=== PATIENT | female | born 1970 | race Caucasian/White ===

== ENCOUNTER 2020-02-05 07:38 | Day surgery (SDC) | payer OTHER | END 2020-02-05 22:45 | disposition home or self-care (01) | LOC: MOI US 07:38 | DX: C50.911 Malignant neoplasm of unspecified site of right female breast (principal) | CPT/HCPCS: 19285; 38505; 77065 ==

== ENCOUNTER 2020-03-01 07:15 | Day surgery (SDC) | payer OTHER ==
[~2020-03-01] VITALS: Ht 171 cm; Wt 71.0 kg
[~2020-03-01 07:15] MED LIST: ACYC800 PO; BUPROPION XL150 M1 PO; IBUP200 PO; TRAZ50 PO; VITAMIN D3 PO
[2020-03-01] MEDS ORDERED: ACET500 PO (07:37)
--- NOTE | 2020-03-01 08:13 | NUR ---
Ambulatory in Day Surgery History, Chart, Medications and Allergies reviewed before start of procedure.Patient confirms NPO status and agrees with scheduled surgery. Patient reports completing Chlorhexadine shower X2 prior to admission to hospital.Surgical site prepped with 2% Chlorhexidine cloth wipe.
--- NOTE | 2020-03-01 11:23 | NUR ---
FROM PACU TO STEP VSS PATIENT AWAKE BUT GROGGY STATES PAIN IS MINAMAL RATES 2/10. DRESSINGS CLEAN DRY INTACT
--- NOTE | 2020-03-01 11:48 | NUR ---
Discharge instructions reviewed with patient. Patient verbalizes understanding. Copy given to patient to take home. Patient States Post-Procedure ride home has been arranged. Discharged via wheelchair to private car for ride home.
== END 2020-03-01 22:39 | disposition home or self-care (01) ==
LOC: ORSCMMR 07:15 → ORD 08:30 → ORSCMMR 08:30
PROVIDERS: Surgery
PROC: 05HN33Z Insertion of Infusion Device into Left Internal Jugular Vein, Percutaneous Approach (ICD-10-PCS; principal; 2020-03-01 08:30)
PROC: 0HBT0ZZ Excision of Right Breast, Open Approach (ICD-10-PCS; principal; 2020-03-01 08:30)
PROC: B5141ZA Fluoroscopy of Left Jugular Veins using Low Osmolar Contrast, Guidance (ICD-10-PCS; principal; 2020-03-01 08:30)
DX: C50.911 Malignant neoplasm of unspecified site of right female breast (principal); I10 Essential (primary) hypertension; Z79.899 Other long term (current) drug therapy
CPT/HCPCS: 77001; 88307; C1788; J0690; J1100; J1642; J1885; J2250; J2405; J2704; J2765; J3010; J7120